=== PATIENT | female | born 1960 | race Caucasian/White ===

== ENCOUNTER 2019-04-23 12:58 | Emergency (ER) | payer BC ==
[~2019-04-23] VITALS: Ht 160 cm; Wt 113.4 kg
[2019-04-23 15:16] VITALS: BP 115/55
== END 2019-04-23 15:18 | disposition home or self-care (01) ==
LOC: ER 12:58
DX: G89.29 Other chronic pain (principal); M25.562 Pain in left knee; I10 Essential (primary) hypertension; E11.9 Type 2 diabetes mellitus without complications; E78.5 Hyperlipidemia, unspecified; G47.30 Sleep apnea, unspecified; M19.90 Unspecified osteoarthritis, unspecified site; F10.10 Alcohol abuse, uncomplicated; Z98.51 Tubal ligation status